=== PATIENT | female | born 1960 | race Two or more races ===

== ENCOUNTER → 2023-04-10 | Day surgery (SDC) | payer OTHER ==
[2023-04-08 09:36] LABS: PH,URINE 5.5 (5.0-8.0); URINE APPEARANCE Clear; URINE BILIRRUBIN Negative (NEGATIVE); URINE BLOOD Negative; URINE COLOR Dark Yellow; URINE GLUCOSE Negative (NEGATIVE); URINE LEUKOCYTE Small; URINE NITRATE Negative; URINE PROTEIN Trace (NEGATIVE)
[2023-04-08 09:40] LABS: URINE BACTERIA 80.6 uL (0.0-1933); URINE EPITHELIAL CELLS 17.4 uL (0.0-38.8); URINE RBC 3.7 uL (0.0-20.8); URINE WBC 24.4 uL (0.0-23.2)
[2023-04-08 09:41] LABS: HEMATOCRIT 37.2 % (36.0-45.00); HEMOGLOBIN 12.3 g/dL (12.0-15.00); MEAN CELL VOLUME 86.1 fL (80.00-100.00); MEAN CORPUSCULAR HEMOGLOBIN 28.6 pg (27.00-32.0); MEAN CORPUSCULAR HGB CONC 33.2 g/dl (32.0-36.0); PLATELET COUNT 305 K/uL (150-450); RED BLOOD COUNT 4.32 M/uL (4.00-6.00); RED CELL DISTRIBUTION WIDTH 13.2 % (11.5-14.5)
[2023-04-08 10:03] LABS: INR 0.98; PARTIAL THROMBOPLASTIN TIME 28.2 SECONDS (22.0-34.0); PROTHROMBIN TIME 10.3 SECONDS (9.0-11.5)
[2023-04-08 10:12] LABS: ALBUMIN 3.9 gm/dL (3.4-5.0); BILIRUBIN TOTAL 0.91 mg/dL (0.3-1.2); CALCIUM 9.4 mg/dL (8.5-10.1); CREATININE SERUM 0.73 mg/dL (0.55-1.02); GFR 80.78; GLOBULINA 3.7 G/DL (2.4-3.5); POTASSIUM 4.19 mEq/L (3.5-5.1); TOTAL PROTEIN 7.6 gm/dL (6.4-8.2)
== END | disposition home or self-care (01) ==
LOC: ADM 03-26 15:15 → CIR.AMB 03-27 10:00
PROVIDERS: ATTEND Surgery
DX: D05.12 Intraductal carcinoma in situ of left breast (principal); Z20.822 Contact with and (suspected) exposure to COVID-19; D24.1 Benign neoplasm of right breast; D48.61 Neoplasm of uncertain behavior of right breast; N60.91 Unspecified benign mammary dysplasia of right breast; N60.81 Other benign mammary dysplasias of right breast; R92.1 Mammographic calcification found on diagnostic imaging of breast; N60.82 Other benign mammary dysplasias of left breast; R59.0 Localized enlarged lymph nodes
CPT/HCPCS: 19303; 38525; 19281; A9541; L8699